=== PATIENT | female | born 1955 | race Caucasian/White ===

== ENCOUNTER → 2018-10-11 | Outpatient (CLI) | payer OTHER | LOC: CIMAGING 14:18 | PROVIDERS: ATTEND Physician Assistant | DX: Z12.31 Encounter for screening mammogram for malignant neoplasm of breast (principal) ==

== ENCOUNTER → 2018-10-12 | Outpatient (CLI) | payer OTHER | LOC: BMCIMAGING 10:04 | PROVIDERS: ATTEND Physician Assistant | DX: Z13.820 Encounter for screening for osteoporosis (principal); R53.83 Other fatigue ==